=== PATIENT | female | born 1985 | race Caucasian/White ===

== ENCOUNTER 2016-05-22 09:05 | Day surgery (SDC) | payer OTHER ==
[~2016-05-22] VITALS: Ht 170.2 cm; Wt 77.6 kg
[~2016-05-22 09:05] MED LIST: ATENOLOL25 MG PO; CLEOCIN HCL300 MG PO; DOXYCYCLINE HY100 MG PO; MOTRIN 600600 MG/TAB PO; MULTIPLE VITAMI1 CAP PO; NORCO 325 MG-51 TAB PO; PRENATAL1 TA1 PO; TENORMIN 5050 MG/TAB PO; TRANDATE 200MG200 MG PO; TYLENOL 325MG325 MG PO; TYLENOL 500MG500 MG; ZYRTEC 10MG10 MG PO
[2016-05-22 09:43] VITALS: BP 128/91; PULSE 83; TEMP 98.2
[2016-05-22 10:53] VITALS: BP 123/76; PULSE 59
== END 2016-05-22 11:05 | disposition home or self-care (01) ==
LOC: SDCO 09:05
DX: R19.5 Other fecal abnormalities (principal); K64.1 Second degree hemorrhoids; K64.4 Residual hemorrhoidal skin tags; K62.89 Other specified diseases of anus and rectum; Z80.0 Family history of malignant neoplasm of digestive organs
CPT/HCPCS: OP; J2250; J3010; J7030

== ENCOUNTER → 2016-07-09 | Outpatient (REF) | LOC: ZLAB.WCH 10:37 | DX: Z01.89 Encounter for other specified special examinations (principal) ==